=== PATIENT | male | born 1950 | race African-American/Black ===

== ENCOUNTER 2022-06-13 15:30 | Inpatient (IN) | payer MEDICARE, OTHER ==
[~2022-06-13] VITALS: Ht 172.7 cm; Wt 50.8 kg
[~2022-06-13 15:30] MED LIST: VANCOMYCIN 1G PREMIX 200 ML IV SCH
[2022-06-13 16:49] LABS: BASOPHILS % 0.5 % (0.0-2.0); EOSINOPHILS % 1.6 % (0.0-5.0); HEMATOCRIT. 40.2 % (42.0-52.0); HEMOGLOBIN. 13.6 g/dL (14.0-18.0); LYMPHOCYTES % 24.3 % (20.0-50.0); MEAN CORPUSCULAR HEMOGLOBIN 31.9 pg (28.0-32.0); MEAN CORPUSCULAR VOLUME 93.9 fL (80.0-94.0); MEAN PLATELET VOLUME 7.9 fl (7.4-10.4); MONOCYTES % 11.9 % (2.0-8.0); NEUTROPHILS % 61.7 % (40.0-76.0); PLATELET 280 x1000/uL (130-400); RED BLOOD CELL COUNT 4.28 mill/uL (4.7-6.1); RED CELL DISTRIBUTION WIDTH 12.2 % (11.6-14.6)
[2022-06-13 17:07] LABS: CHLORIDE 105 mEq/L (98-107)
[2022-06-13] MEDS ORDERED: PROPOFOL 200MG/20ML VIAL IV ONE (17:59)
[2022-06-13] MEDS ORDERED: MIDAZOLAM HCL 2 MG/2 ML VIAL ONE (18:01)
[2022-06-13] MEDS ORDERED: FENTANYL CITRATE/PF 50MCG/ML 2ML VIAL IV PRN (18:15)
[2022-06-13] MEDS ORDERED: HYDROMORPHONE HCL/PF 2MG/ML CPJ IV SCH (18:45)
[2022-06-13] MEDS ORDERED: IBUPROFEN 600MG TABLET PO SCH (18:45)
[2022-06-13] MEDS ORDERED: METFORMIN HCL 500MG TABLET PO NR (18:45)
[2022-06-13] MEDS ORDERED: FENTANYL CITRATE/PF 50MCG/ML 2ML VIAL ONE (19:11)
[2022-06-13] MEDS ORDERED: DEXAMETHASONE 4MG/ML 1ML VIAL ONE (19:14)
[2022-06-13] MEDS ORDERED: ONDANSETRON HCL 4MG/2ML INJ ONE (19:14)
[2022-06-13] MEDS ORDERED: HYALURONATE SODIUM 10 MG/ML 0.55ML SYRINGE IO ONE (19:14)
[2022-06-13] MEDS ORDERED: CEFAZOLIN SODIUM 1000MG/VIAL ONE (19:15)
[2022-06-13] MEDS ORDERED: LIDOCAINE HCL 2%/EPINEPHRINE 1:100,000 20 ML VIAL INFIL ONE (19:39)
[2022-06-13] MEDS: IPRATROPIUM/ALBUTEROL 0.5-3(2.5)MG/3ML NEB HHN SCH (20:45)
[2022-06-13] MEDS ORDERED: HYDROMORPHONE HCL/PF 2MG/ML CPJ IV PRN (22:01)
[2022-06-13] MEDS ORDERED: IPRATROPIUM/ALBUTEROL 0.5-3(2.5)MG/3ML NEB HHN PRN (22:45)
[2022-06-13] MEDS ORDERED: ONDANSETRON HCL 4MG/2ML INJ IV PRN (22:45)
[2022-06-13] MEDS ORDERED: DIPHENHYDRAMINE 50MG/ML VIAL IV PRN (22:45)
[2022-06-13] MEDS ORDERED: MAGNESIUM/ALUMINUM HYDROXIDE/SIMETHICONE 30ML UDC PO PRN (22:45)
[2022-06-13] MEDS ORDERED: ACETAMINOPHEN 325MG TABLET PO PRN ×2 (22:45)
[2022-06-13] MEDS ORDERED: GUAIFENESIN 200MG/10ML SUGAR FREE UDC PO PRN (22:45)
[2022-06-13] MEDS ORDERED: DOCUSATE SODIUM 100MG CAPSULE PO PRN (22:45)
[2022-06-13] MEDS ORDERED: HYDROCODONE/ACETAMINOPHEN 10/325MG TABLET PO PRN (22:45)
[2022-06-13] MEDS ORDERED: CLONIDINE 0.1MG TABLET PO PRN (22:45)
[2022-06-13] MEDS ORDERED: NA PHOS,M-B/NA PHOS,DI-BA ENEMA 118ML PR PRN (22:45)
[2022-06-13] MEDS ORDERED: HYDROCODONE/ACETAMINOPHEN 5/325MG TABLET PO PRN (22:45)
[2022-06-13] MEDS: GUAIFENESIN-DM 200MG-20MG/10ML UDC PO PRN (22:49)
[2022-06-13] MEDS ORDERED: LATANOPROST 0.005% OPHTH DROPS 2.5ML RIGHTEYE SCH (23:00)
[2022-06-13] MEDS ORDERED: DEXTROSE 50% WATER 50ML SYRINGE IV PRN (23:00)
[2022-06-13] MEDS: AMLODIPINE 5MG TABLET PO SCH (23:46)
[2022-06-14] VITALS (7 sets, daily range): BP systolic 111–143; BP diastolic 63–92
[2022-06-14] MEDS ORDERED: LORAZEPAM 2MG/ML CPJ IV PRN
[2022-06-14] MEDS: IPRATROPIUM/ALBUTEROL 0.5-3(2.5)MG/3ML NEB HHN SCH ×5 (01:06→16:24)
[2022-06-14] MEDS ORDERED: VANCOMYCIN 1.25GM PMX (XELLIA) 250 ML IV SCH (01:30)
[2022-06-14] MEDS: BLOOD SUGAR DIAGNOSTIC STRIP TEST SCH ×3 (06:21→16:36)
[2022-06-14] MEDS: INSULIN LISPRO 100 UNITS/ML SUBCUT SCH ×2 (06:27→11:57)
[2022-06-14] MEDS: AMLODIPINE 5MG TABLET PO SCH (08:45)
[2022-06-14] MEDS: GUAIFENESIN-DM 200MG-20MG/10ML UDC PO PRN ×3 (08:45→18:04)
[2022-06-14] MEDS ORDERED: VANCOMYCIN 500MG PREMIX 100 ML IV SCH (11:30)
[2022-06-14] MEDS ORDERED: METFORMIN HCL 500MG TABLET PO SCH (12:30)
[2022-06-14] MEDS ORDERED: VANCOMYCIN 750MG PREMIX 150 ML IV SCH (14:00)
== END 2022-06-14 18:33 | disposition home or self-care (01) | DRG 73 ==
LOC: ER 16:03 → 8WST 17:49
PROVIDERS: ADMIT Internal Medicine; ATTEND Internal Medicine
PROC: 08Q9XZZ Repair Left Cornea, External Approach (ICD-10-PCS; principal; 2022-06-13)
DX: S05.32XA Ocular laceration without prolapse or loss of intraocular tissue, left eye, initial encounter (principal); E11.9 Type 2 diabetes mellitus without complications; H40.10X0 Unspecified open-angle glaucoma, stage unspecified; S01.81XA Laceration without foreign body of other part of head, initial encounter; I10 Essential (primary) hypertension; V89.2XXA Person injured in unspecified motor-vehicle accident, traffic, initial encounter; Z79.84 Long term (current) use of oral hypoglycemic drugs; Z83.3 Family history of diabetes mellitus; Z82.49 Family history of ischemic heart disease and other diseases of the circulatory system; Y93.89 Activity, other specified; Y99.8 Other external cause status; Y92.410 Unspecified street and highway as the place of occurrence of the external cause
CPT/HCPCS: 36415; 80053; 82962; 85025; 87426; 99285; C9803; J0690; J1100; J1170; J2250; J2405; J2704; J3010; J3370; J3490; J7030